=== PATIENT | male | born 1985 | race Caucasian/White ===

== ENCOUNTER 2024-02-15 22:36 | Emergency (ER) | payer OTHER, SELFPAY ==
--- NOTE | ~2024-02-15 | CT_ITS ---
CT ANGIOGRAM NECK AND HEAD History: Numbness. Technique: Axial noncontrast imaging of the brain was performed. Serial spiral axial images through t he head and neck were then obtained during arterial phase IV injection of 100 cc of Omnipaque 350. 3- D postprocessing and MIP images were then reconstructed on the remote workstation. Dose reduction pat hnique was used on this scan by utilizing automated exposure control and iterative reconstruction pat hnique. The dose-length product (DLP) was 1867.59 mGy-cm. CTA neck findings: Bilateral vertebral arteries are patent. Bilateral common carotid, internal carot id, and external carotid arteries are patent. No large vessel occlusion or stenosis. No aneurysm. The proximal right internal carotid artery demonstrates 0% stenosis relative to the normal distal artery lumen diameter. The proximal left internal carotid artery demonstrates 0% stenosis relative to the n ormal distal artery lumen diameter. CTA head findings: Distal vertebral arteries, basilar artery, and posterior cerebral arteries are pat ent. Distal internal carotid arteries, middle cerebral arteries, and anterior cerebral arteries are p atent. No large vessel occlusion or stenosis seen. No aneurysm. Axial noncontrast imaging of the brain is unremarkable. No acute infarct, intracranial hemorrhage, or mass lesion identified. Rowland-white differentiation intact. No mass effect or midline shift. Ventricl es and subarachnoid spaces are unremarkable. Paranasal sinuses and mastoid air cells are clear. Campbell rium intact. Impression: Unremarkable exam. Reviewed, dictated and finalized at [facility]. Impression: Unremarkable exam.
[2024-02-15 22:41] VITALS: BP 160/100; PULSE 86; PULSE 93; RESP 21; RESP 22; TEMP 36.8; O2SAT 98
[2024-02-15 23:08] LABS: Basophils Percent Auto 0.4 % (0.2-1.2); Eosinophils Absolute Auto 0.2 K/mm3 (0-0.3); Eosinophils Percent Auto 2.3 % (0-4.4); Hematocrit 47.5 % (42.0-52.0); Hemoglobin 16.8 g/dL (14.0-18.0); Immature Granulocyte Absolute 0.03 K/mm3 (0.00-0.031); Immature Granulocyte Percent A 0.3 % (0-0.5); Lymphocytes Absolute Auto 3.78 K/mm3 (0.9-3.2); Lymphocytes Percent Auto 37.1 % (18.3-44.2); Mean Corpuscular HGB Conc 35.4 g/dl (32-36); Mean Corpuscular Hemoglobin 29.5 pg (26-34); Mean Corpuscular Volume 83.5 fl (80-100); Mean Platelet Volume 9.4 fl (7.4-10.4); Monocytes Absolute Auto 0.8 K/mm3 (0.1-0.6); Monocytes Percent Auto 7.5 % (2.6-8.5); Neutrophils Absolute Auto 5.4 K/mm3 (1.3-6.7); Neutrophils Percent Auto 52.4 % (45.5-73.1); Platelet Count Result 210 k/mm3 (150-375); Red Blood Count 5.69 M/mm3 (4.6-6.20); Red Cell Distribution Width 13.6 % (11.5-14.5); White Blood Count 10.2 K/mm3 (4.5-10.0)
--- NOTE | 2024-02-15 23:10 | ED.GENADULT ---
HPI - General Adult General Chief complaint: Neuro Symptoms/Deficit Stated complaint: facial numbness, dizzy, headache Time Seen by Provider: 02/15/24 22:43 History of Present Illness HPI narrative: Patient is a 38-year-old male who presents emergency department this evening complaining of nonspecific symptoms including nose tingling and pain behind his left eye. Patient is unsure when the symptoms started he says approximately 3-4 hours ago. He denies any focal weakness, any numbness and tingling anywhere along his bilateral lower or upper extremities. Patient denies any recent trauma or falls. He states that [facility]. Patient states that this pain behind his eye he has had for a while. He denies any significant past medical history other than hypertension. Related Data Allergies Allergy/AdvReac Type Severity Reaction Status Date / Time No Known Allergies Allergy Mild Verified 01/03/11 18:05 Review of Systems Review of Systems: All systems are reviewed and are negative unless stated otherwise in the HPI. Exam Narrative: General: Alert, awake, afebrile, in no acute distress. HEENT: PERRL, no rhinorrhea, no post nasal drip, oropharynx clear. Cardiovascular: Regular rate and rhythm, no murmurs, rubs or gallops, no peripheral edema. Respiratory: Clear to auscultation bilaterally, no tachypnea, no wheezing, no rhonchi, no rubs, no respiratory distress. Abdomen: Soft, nontender, nondistended, no rebound, no guarding, no peritoneal signs. Musculoskeletal: No joint swelling or deformity, normal muscle tone. Skin: No rashes or petechia, no signs of infection. Psychiatric: Alert and oriented, normal behavior and judgment for situation. Neurological: Alert and oriented to person, place, and time. Follows all commands. No focal deficits, 5/5 motor strength in the bilateral upper and lower extremity, sensation intact bilateral upper and lower extremity, cranial nerves 2-12 grossly intact, speech is clear and fluent. Course Vital Signs Vital signs: Vital Signs Temperature 98.2 F 02/15/24 22:41 Pulse Rate 86 02/15/24 22:41 Respiratory Rate 21 H 02/15/24 22:41 Blood Pressure 160/100 H 02/15/24 22:41 Pulse Oximetry 98 02/15/24 22:41 Oxygen Delivery Room Air 02/15/24 22:41 Temperature 98.2 F 02/15/24 22:41 Pulse Rate 89 02/16/24 00:02 Respiratory Rate 16 02/16/24 00:02 Blood Pressure 141/93 H 02/16/24 00:02 Pulse Oximetry 98 02/16/24 00:02 Oxygen Delivery Room Air 02/15/24 22:41 Medical Decision Making MDM Narrative Medical decision making narrative: The patient was evaluated by myself in the emergency department. History is obtained from patient who is an independent historian and physical exam was performed. External medical records were reviewed at this time. IV was established and pertinent tests were ordered. Laboratory results obtained revealing no acute process. Imaging studies obtained included CT brain without IV contrast and CT angiogram of the head and neck which was independently interpreted by me revealing no acute process, which is pending final radiology interpretation. Differential diagnosis considerations include complex migraine, anxiety reaction, intracranial process Comorbidities impacting this visit include none. I have evaluated and discussed social determinants of health with the patient that could potentially impact subsequent diagnosis and treatment plans. On repeat assessment of the patient, reevaluation revealed that the patient is doing well and is in no acute distress. Patient symptoms have remained stable since he arrived to our emergency department. Repeat vital signs were all reviewed and noted to be stable. Differential diagnosis and treatment plan were discussed with the patient at bedside. Patient agrees with discussion and after shared medical decision ma
[2024-02-15 23:20] LABS: Alanine Aminotransferase 44 U/L (6-50); Albumin Level 4.6 g/dL (3.5-5.1); Alkaline Phosphatase 51 U/L (38-126); Anion Gap 8 mmol/L (4-12); Aspartate Amino Transferase 32 U/L (17-59); Bilirubin,Total 0.7 mg/dL (0.2-1.3); Blood Urea Nitrogen 24 mg/dL (9-20); Carbon Dioxide 28 mmol/L (22-30); Chloride 103 mmol/L (98-107); Estimated CRCL calculation 99 ml/min; Estimated Glomerular Filt Rate > 60; Glucose 91 mg/dL (65-110); Magnesium 1.9 mg/dL (1.6-2.3); Potassium 3.4 mmol/L (3.4-5.0); Sodium 139 mmol/L (137-145)
[2024-02-16 00:02] VITALS: BP 141/93; PULSE 89; RESP 16; O2SAT 98
[2024-02-16 00:58] VITALS: BP 133/79; PULSE 77; RESP 17; O2SAT 98
== END 2024-02-16 00:58 | disposition home or self-care (01) ==
PROVIDERS: Emergency Provider Emergency Medicine; PCP Family Medicine
DX: R20.2 Paresthesia of skin (principal)
CPT/HCPCS: 36415; 70496; 70498; 80053; 83735; 85025; 99284; Q9967

== ENCOUNTER 2024-03-22 11:22 | Emergency (ER) | payer OTHER, SELFPAY ==
--- NOTE | ~2024-03-22 | XR_ITS ---
EXAMINATION: XR chest 2V DATE: 03/22/2024 12:12 INDICATION: Chest pain. Shortness of breath. TECHNIQUE: Frontal and lateral views of the chest were obtained. COMPARISON: None. FINDINGS: There is no pneumonia, pleural effusion, or pneumothorax. The heart size is normal. IMPRESSION: 1. No acute cardiopulmonary disease. Reviewed, dictated and finalized at location [facility].
--- NOTE | 2024-03-22 11:39 | ECG_ITS ---
Test Date: 2024-03-22 11:48:50 Measurements Intervals [place] Rate: 98 P: 49 VT: 119 QRS: 24 QRSD: 106 T: 28 QT: 340 QTc: 435 Interpretive Statements SINUS RHYTHM WITH SHORT VT INTERVAL NONSPECIFIC T-WAVE ABNORMALITY No previous ECG available for comparison Electronically Signed On 03-22-2024 13:39:06 CDT by Krzysztof Pool M.D.
[2024-03-22 11:47] VITALS: BP 159/104; PULSE 101; RESP 20; TEMP 36.8; O2SAT 99
[2024-03-22 12:07] LABS: Basophils Percent Auto 0.4 % (0.2-1.2); Eosinophils Absolute Auto 0.1 K/mm3 (0-0.3); Eosinophils Percent Auto 1.8 % (0-4.4); Hematocrit 49.8 % (42.0-52.0); Hemoglobin 17.1 g/dL (14.0-18.0); Immature Granulocyte Absolute 0.03 K/mm3 (0.00-0.031); Immature Granulocyte Percent A 0.4 % (0-0.5); Lymphocytes Absolute Auto 1.99 K/mm3 (0.9-3.2); Mean Corpuscular HGB Conc 34.3 g/dl (32-36); Mean Corpuscular Hemoglobin 28.9 pg (26-34); Mean Corpuscular Volume 84.3 fl (80-100); Mean Platelet Volume 9.1 fl (7.4-10.4); Monocytes Absolute Auto 0.4 K/mm3 (0.1-0.6); Neutrophils Absolute Auto 4.7 K/mm3 (1.3-6.7); Neutrophils Percent Auto 64.4 % (45.5-73.1); Platelet Count Result 200 k/mm3 (150-375); Red Blood Count 5.91 M/mm3 (4.6-6.20); Red Cell Distribution Width 13.3 % (11.5-14.5); White Blood Count 7.4 K/mm3 (4.5-10.0)
[2024-03-22 12:16] LABS: Alanine Aminotransferase 58 U/L (6-50); Albumin Level 4.8 g/dL (3.5-5.1); Alkaline Phosphatase 60 U/L (38-126); Anion Gap 10 mmol/L (4-12); Aspartate Amino Transferase 38 U/L (17-59); Bilirubin,Total 0.6 mg/dL (0.2-1.3); Blood Urea Nitrogen 20 mg/dL (9-20); Calcium 9.6 mg/dL (8.4-10.2); Carbon Dioxide 23 mmol/L (22-30); Chloride 103 mmol/L (98-107); Estimated CRCL calculation 105 ml/min; Estimated Glomerular Filt Rate > 60; Glucose 141 mg/dL (65-110); Lipase 103 U/L (23-300); Sodium 136 mmol/L (137-145)
[2024-03-22 12:17] LABS: INR 0.9; Partial Thromboplastin Time 24.1 Seconds (22.3-36.8); Prothrombin Time 12.8 Seconds (11.1-14.7)
[2024-03-22 12:28] LABS: Troponin I < 0.012 ng/mL (0.000-0.034)
[2024-03-22 13:08] VITALS: PULSE 93
[2024-03-22 13:10] VITALS: BP 158/108; PULSE 93; RESP 18; O2SAT 99
[2024-03-22] MEDS: ASPIRIN 81 MG CHEWABLE TABLET 324 MG PO (13:15)
--- NOTE | 2024-03-22 13:55 | ED.ARRPALP ---
HPI - Arrhythmia/Palpitations General Chief Complaint: Chest Pain Stated Complaint: I think I have heat exhaustian Time Seen by Provider: 03/22/24 13:10 Source: patient Mode of arrival: ambulatory Limitations: no limitations History of Present Illness HPI narrative: This is a 38 year old male that presents to the ER for heart racing. Reports he has been out in the heat a lot the last week. Is wondering if he is suffering from heat exhaustion. Reports his heart was racing with rates into the 140s without exertion. Does also report history of anxiety and is unsure if this contributes. Reports he has suffered from chronic dizziness and sinus issues. He has history of a TBI. Is seen at the [place]. Reports he is feeling a little better after drinking some water. Denies current chest pain or shortness of breath. Related Data Allergies Allergy/AdvReac Type Severity Reaction Status Date / Time No Known Allergies Allergy Mild Verified 03/22/24 13:10 Review of Systems Review of Systems: CONSTITUTIONAL: Denies fever EYES: Denies visual changes CARDIOVASCULAR: Reports palpitations. Denies chest pain, or edema. RESPIRATORY: Denies dyspnea. GASTROINTESTINAL: Denies vomiting, or diarrhea. MUSCULOSKELETAL: Reports myalgia. PSYCHIATRIC: Reports anxiety All systems reviewed & are unremarkable except as noted in HPI and below Exam Narrative: GENERAL: Well-appearing, well-nourished, and in no acute distress. HEAD: Normocephalic, atraumatic. EYES: PERRLA and EOMI. ENT: Nares clear, no rhinorrhea or epistaxis. Mucous membranes moist. Oropharynx without tonsillar hypertrophy exudate or other lesions. Bilateral TMs pearly horne non-bulging NECK: Supple. No adenopathy or masses. CHEST: Clear to auscultation. No respiratory distress. No wheezes rales or rhonchi HEART: Regular rate and rhythm. No murmur heard. Normal peripheral pulses. EXTREMITIES: Normal range of motion. No edema. SKIN: Warm, dry, no rash. NEURO: No focal deficits. Alert and oriented x3. Cranial nerves 2-12 grossly intact PSYCH: Normal mood and affect Course Course Emergency Course: Patient updated on his workup and agrees with plan of care Vital Signs Vital signs: Vital Signs Temperature 98.2 F 03/22/24 11:47 Pulse Rate 101 H 03/22/24 11:47 Respiratory Rate 20 03/22/24 11:47 Blood Pressure 159/104 H 03/22/24 11:47 Pulse Oximetry 99 03/22/24 11:47 Oxygen Delivery Room Air 03/22/24 11:47 Temperature 98.2 F 03/22/24 11:47 Pulse Rate 75 03/22/24 16:16 Respiratory Rate 14 03/22/24 16:16 Blood Pressure 138/85 03/22/24 16:16 Pulse Oximetry 99 03/22/24 16:16 Oxygen Delivery Room Air 03/22/24 11:47 MDM - Arrhythmia/Palpitations MDM Narrative Medical decision making narrative: Patient presents to the emergency department for heart palpitations. Mildly tachycardic upon arrival, this normalized with IV fluids. Patient has remained in sinus rhythm. CBC metabolic panel without concerning findings. Patient voicing possible dehydration. His CK is normal. Urine without evidence of infection or dehydration. EKG without concerning changes in baseline and 3 hour troponin are negative. Chest x-ray without acute cardiopulmonary abnormality. Patient was updated on his workup and agrees with plan of care. He is to follow up with primary provider. He was given warnings to return to the ER Differential Diagnosis Differential diagnosis: Likely palpitations, anxiety, sinus tachycardia, artial fibrillation and ventricular premature beats Lab Data Attestation: I reviewed the patient's lab results. 03/22/24 12:00 03/22/24 12:00 Labs: Lab Results 03/22/24 03/22/24 03/22/24 Range/Units 12:00 14:03 15:00 WBC 7.4 (4.5-10.0) K/mm3 RBC 5.91 (4.6-6.20) M/mm3 Hgb 17.1 (14.0-18.0) g/dL Hct 49.8 (42.0-52.0) % MCV 84.3 (80-100) fl MCH 28.9 (26-34) pg MCHC 34.3 (32-36) g/dl RDW
[2024-03-22 13:58] VITALS: BP 133/64; PULSE 81; RESP 18; O2SAT 95
[2024-03-22 13:59] LABS: Creatine Kinase 152 U/L (55-170)
[2024-03-22] MEDS: SODIUM CHLORIDE 0.9% IV 1,000 ML 999 ML IV CONT (14:01)
[2024-03-22 14:13] LABS: Appearance Urine Clear (Clear); Bilirubin Urine Negative (Negative); Blood Urine Negative (Negative); Color Urine Yellow (Yellow); Glucose Urine UA Negative (Negative); Ketones Urine Negative (Negative); Leukocyte Esterase Ur Negative LEU/UL (Negative); Nitrate Urine Negative (Negative); Protein Urine Negative (Negative); Urobilinogen Urine 0.2 mg/dL (<2.0)
[2024-03-22 14:16] LABS: Add Urine Microscopic? NO; Specific Grav Ur 1.003 (1.001-1.035)
--- NOTE | 2024-03-22 14:55 | ECG_ITS ---
Test Date: 2024-03-22 15:05:42 Measurements Intervals [place] Rate: 69 P: 50 [place]: 139 QRS: 20 QRSD: 110 T: 7 QT: 382 QTc: 410 Interpretive Statements SINUS RHYTHM NORMAL ELECTROCARDIOGRAM Compared to ECG 03/22/2024 11:48:50 NO SIGNIFICANT CHANGE Electronically Signed On 03-23-2024 07:19:15 CDT by Omari Hdez M.D.
[2024-03-22 15:01] VITALS: BP 134/87; PULSE 72; RESP 17; O2SAT 97
[2024-03-22 15:27] LABS: Troponin I < 0.012 ng/mL (0.000-0.034)
[2024-03-22 16:16] VITALS: BP 138/85; PULSE 75; RESP 14; O2SAT 99
== END 2024-03-22 16:39 | disposition home or self-care (01) ==
PROVIDERS: Emergency Medicine; Emergency Provider Physician Assistant
DX: R00.2 Palpitations (principal); F41.9 Anxiety disorder, unspecified; Z87.820 Personal history of traumatic brain injury; R94.31 Abnormal electrocardiogram [ECG] [EKG]
CPT/HCPCS: 36415; 71046; 80053; 81003; 82550; 83690; 84484; 85025; 85610; 85730; 93005; 96360; 99284; A9270; J7030

== ENCOUNTER 2025-06-14 17:17 | Emergency (ER) | payer OTHER, SELFPAY ==
--- OUTSIDE RECORDS SUMMARY | 2025-06-12 11:15 | XMS_ITS | Continuity of Care Document ---
Author Organization [employer] [place] Address [address] [place] [address] [address] [place] [address] Phone Care Team Providers Care Card Writer Hand Name Role Phone Sofía PT, CMPT, Jamil [...] Diagnoses Date Provider Providers Copied on Encounter [facility], [id number], tel:[phone] Viraj [place] No Information Angel Negron. [address] [facility], [facility] [address], [place], [address], [place]. tel: [phone] Referring Provider: December [facility] 5th Floor, [place], [address]. tel:[phone] [facility] [address], [id number], tel:[phone] Viraj [place] No Information Angel Negron. [address] [facility], [address], [place], [facility], [place]. tel: [phone] Referring Provider: Michelle Waddell, Enma5 [facility] 5th Floor, [place], [address]. tel:[phone] [place] [address], [facility] [place] [address], [place], [id number], tel:[phone] Viraj [place] No Information Maribeln es Jamil. [address] [place] [address], [address], [place], [facility], [place]. tel: [phone] Referring Provider: Michelle Waddell, Enma5 [facility] 5th Floor, [place], [address]. tel:[phone] [place] [address], [facility] [place] [address], [place], [id number], tel:[phone] Viraj [place] No Information Maribeln es Jamil. [address] [place] [address], [address], [place], [place], [facility], [place]. tel: [phone] Referring Provider: Michelle Waddell, Enma5 [facility] 5th Floor, [place], [address]. tel:[phone] [place] [address], [facility] [place] [address], [place], [id number], [place] tel:[phone] Viraj [place] No Information Maribeln es Jamil. [address] [place] [address], [address], [place], [facility], [place]. tel: [phone] Referring Provider: Michelle Waddell, Enma5 [facility] 5th Floor, [place], [address]. tel:[phone] [place] [address], [facility] [address], [id number], [place] tel:[phone] Viraj [place] No Information BeasleyClyden es Jamil. [address] [place] [address], [address], [place], [place], [facility], [place]. tel: [phone] Referring Provider: December [facility] 5th Floor, [place], [address]. tel:[phone] [place] [address], [address], [place], [place], [id number], [place] tel:[phone] [place]aj [place] No Information Carter Rolf. . Referring Provider: Chato Diane, [place], [address]. tel:[phone] [place] [address], [address], [place], [id number], [place] tel:[phone] [place] No Information Carter Rolf. . Referring Provider: Chato Diane, [place], [address]. tel:[phone] [place] [address], [address], [place], [id number], [place] tel:[phone] [place]aj [place] No Information Carter Rolf. . Referring Provider: Chato Diane, [address] [place] [address], [address]. tel:[phone] [place] [address], [address], [place], [id number], [place] tel:[phone] [place] No Information Carter Rolf. . Referring Provider: Chato Diane, [address] [place] [address], [address]. tel:[phone] [place] [address], [address], [place], [id number], [place] tel:[phone] [place] No Information Carter Rolf. . Referring Provider: Chato Diane, [address] [place] [address], [address]. tel:[phone] [place] [address], [address], [place], [id number], [place] tel:[phone] [place] No Information Carter Rolf. . Referring Provider: Chato Diane, [address] [place], [address]. tel:[phone] [place] [address], [address] [facility], [place], [id number], [place] tel:[phone] [place]aj [place] No Information Carter Rolf. . Referring Provider: Chato Diane, [address] [facility], [place], [address]. tel:[phone] [place] [address], [address] [facility], [place], [place], [id number], [place] tel:[phone] [place] No Information Carter Rolf. . Referring Provider: Chato Diane, [address] [place], [address]. tel:[phone] [place] [address], [address] [facility], [place], [id number], [place] tel:[phone] [place] No Information Carter Rolf. . Referring Provider: Chato Diane, [address] [place], [address]. tel:[phone] [place] [address], [address] [facility], [place], [id number], [place] tel:[phone] [place] No Information Carter Rolf. . Referring Provider: Chato Diane, [address] [place], [address]. tel:[phone] [place] [address], [address] [facility], [place], [id number], [place] tel:[phone] [place] No Information Carter Rolf. . Referring Provider: Chato Diane, [address] [place], [address]. tel:[phone] [place] [address], [address] [facility] [address], [place], [id number], tel:[phone] [place]aj [place] No Information Carter Rolf. . Referring Provider: Chato Diane, [address] [place] [address], [address]. tel:[phone] [place] [address], [address] [address], [place], [id number], tel:[phone] [place] No Information Carter Rolf. . Referring Provider: Chato Diane, [address] [place], [address]. tel:[phone] [place] [address], [address] [address], [place], [id number], tel:[phone] Viraj [place] No Information Carter Rolf. . Referring Provider: Chato Diane, [address] [place], [address]. tel:[phone] [place] [address], [address] [place] [address], [place], [place], [id number], tel:[phone] [place]aj [place] No Information Carter Rolf. . Referring Provider: Chato Diane, [address] [place], [address]. tel:[phone] Family History Family Member Type Diagnosis Age At Onset No Information Payers Payer name Insurance type Covered alliance party ID Authorjesús herrera(s) [facility] [employer] [place] [id number] Social History Type Description Quantity Date [...]
--- OUTSIDE RECORDS SUMMARY | 2025-06-14 17:21 | XMS_ITS | Clinical Summary ---
Author Organization [facility] Address [address] [facility] [place] [address] Care Team Providers Care Planning Manager Name Role Phone Unlisted, Ordering Provider MD Primary Care Prov ider Unavailable Source Comments [facility],non-owned Affiliates and Associated Physician Practices is amultiple site organization consisting of ambulatory clinics and hospital sitesin [place], [place], [place] and [place]. This disclosure is being madepursuant to the Care Everywhere program and may not contain all information available regarding this patient. Last updated 18.[employer] [facility] Allergies No known active allergies Medications * Be aware that medications may not be up to date on this document. Alwaysverify current medications with the patient. amphetamine-dext roamphetamine XR 24hr (ADDERALL XR) 20 MG capsule Take 20 mg by mouth DAILY. 09/29/19 18 Active Syringe, Disposable, (2-3CC SYRINGE) 3 ML MISC Use 1 mL every 10 days 10 Each 11 01/31/20 18 Active Syringe, Disposable, 3 ML MISC 1 mL by Does not apply route Every 10 days. 22G needles 09/29/19 18 Active CEPACOL EXTRA STRENGTH 15-2.6 MG lozenge 02/03/20 18 Active REFRESH PLUS 0.5 % ophthalmic solution 02/03/20 18 Active FLUoxetine (PROZAC) 20 MG capsule 02/01/20 18 Active fluticasone propionate (FLONASE) 50 MCG/ACT nasal spray 02/03/20 18 Active loratadine (CLARITIN) 10 MG tablet 02/03/20 18 Active NASAL DECONGESTANT SPRAY 0.05 % nasal spray 02/03/20 18 Active pseudoephedrine (SUDAFED) 30 MG tablet 02/03/20 18 Active AYR SALINE NASAL RINSE 1.57 G 02/03/20 18 Active SAFETY-BERNADETTE 3CC SYR 22GX1.5 22G X 1-1/2 3 ML MISC 01/31/20 18 Active testosterone cypionate (DEPO-TESTOTERON E) 200 MG/ML injectionIndicat ions:Hypogonadot ropic Hypogonadism Inject 1.5 mL into muscle every 7 days Reasons: Hypogonadotropic Hypogonadism 10 mL 5 02/10/20 18 Active sildenafil (VIAGRA) 100 MG tablet Take 1 tablet by mouth once daily as needed (Erectile Dysfunction) 18 tablet 11 02/10/20 18 Active Active Problems Problem Noted Date Diagnosed Date Erectile dysfunction due to diseases classified elsewhere 09/29/2017 Testicular hypofunction 09/29/2017 Social History Tobacco Use Types Packs/Day Years Used Date Smoking Tobacco: Never Smokeless Tobacco: Never Alcohol Use Standard Drinks/Week Comments Yes 0 (1 standard drink = 0.6 oz pur e alcohol) Sex and Gender Information Value Date Recorded Sex Assigned at Not on file 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 Gender Identity Not on file Sexual Orientation Not on file Last Filed Vital Signs Vital Sign Reading Time Taken Comments Blood Pressure 140/86 02/09/2018 2:15 PM CDT Pulse 99 02/09/2018 2:15 PM CDT Temperature 36.5 C (97.7 F) 02/09/2018 2:15 PM CDT Respiratory Rate - - Oxygen Saturation 95% 02/09/2018 2:15 PM CDT Inhaled Oxygen Concentration - - Weight 113.7 kg (250 lb 9.6 oz) 02/09/2018 2:15 PM CDT Height 187 cm (6' 1.62) 02/09/2018 2: 15 PM CDT Body Mass Index 32.51 02/09/2018 2:15 PM CDT Plan of Treatment Health Maintenance Due Date Last Done Comments HIV SCREENING 2002 HEPATITIS C SCREENING 04/19/2005 DTAP/TDAP/TD VACCINES (1 - Tdap) 2006 HEPATITIS B VACCINE (1 of 3 - 19+ 3-dose series) 2006 HPV VACCINE (1 - 3-dose SCDM series) 2014 DEPRESSION SCREENING 09/26/2024 COVID-19 VACCINE ( season) 2025 INFLUENZA VACCINE (#1) 2025 6, 08/27/2014, 06/21/2013, Additional history exists ZOSTER VACCINE (1 of 2) 2037 HIB VACCINE Aged Out No longer eligi ble based on patient's age to complete this topic MENINGOCOCCAL (Group B) VACCINE SHARED DECISION-MAKING Aged Out No longer eligible based on patient's age to complete this topic MENINGOCOCCAL GROUPS A/C/Y/W VACCINE Aged Out No longer eligible based on patient's age to complete this topic PNEUMOCOCCAL VACCINE Aged Out No long er eligible based on patient's age to complete this topic Insurance [facility] Care Teams Planning Manager Relationship Specialty Start Date End Date Unlisted, Ordering Provider, PCP - General 05/23/18
[2025-06-14 17:23] VITALS: BP 162/83; PULSE 130; RESP 20; TEMP 36.3; O2SAT 100
--- NOTE | 2025-06-14 17:31 | ED_ITS ---
HPI - Arrhythmia/Palpitations General Chief Complaint: Chest Pain Stated Complaint: POSS HEARTATTACK Time Seen by Provider: 06/14/25 17:40 Source: patient, RN notes reviewed and old records reviewed Mode of arrival: ambulatory Limitations: no limitations History of Present Illness HPI narrative: 40 year old male [facility] stating he thinks he is having a 'heart attack. He reports he awoke from nap and had been wearing his oxygen during his nap. He states that he went down stairs and ate peanut butter and jelly and then started having very fast heart rate in the 160's and also reports that he has chest pressure to his left chest and to his shoulder and down his arm. Patient reports that he chewed up a Vistaril tab on the way to clinic that he takes for his panic attacks and anxiety. 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 [facility] Patient denies any nausea or any diaphoresis. Patient reports no cardiac history MD complaint: rapid heart beat and palpitations (chest pain) Onset (ago): minute(s) (within past 20 minutes prior to arrival) Arrhythmia history: other (has had previous palpitations) Treatments prior to arrival: other (chewed up a hydroxyzine) Related Data Home Medications ?Medication ?Instructions ?Recorded ?Confirmed ?Last Taken ?Type Unable to Obtain Home Medications 06/1406/14/25 Unknown History Allergies Allergy/AdvReac Type Severity Reaction Status Date / Time No Known Allergies Allergy Mild Verified 06/14/25 18:46 Review of Systems Review of Systems: CONSTITUTIONAL: Denies fever, chills, or sweats. EYES: Denies visual changes, redness, or discharge. ENT: Denies rhinorrhea, congestion, sore throat, or otalgia. CARDIOVASCULAR: reports left sided chest pain, palpitations, no edema. RESPIRATORY: Denies cough or dyspnea. GASTROINTESTINAL: Denies abdominal pain, nausea, vomiting, or diarrhea. GENITOURINARY: Denies dysuria or hematuria. SKIN: Denies rash or itching. MUSCULOSKELETAL: Denies back pain, joint pain, or myalgia. NEUROLOGIC: reports history of headache, no numbness, or weakness. PSYCHIATRIC: Reports history of anxiety or depression, panic attacks All systems reviewed & are unremarkable except as noted in HPI and below PMFSH Past Medical History Medical History History of sinus problem Fractured sternum Fracture, ribs Migraine Gynecomastia Anxiety and depression PTSD (post-traumatic stress disorder) Sleep apnea cant tolerate C-Pap wears oxygen at 2 liters Surgical History Surgical History History of tonsillectomy H/O eye surgery PRK for vision correction H/O: vasectomy Social History Social History Smoking status: Never smoker Substance use type: marijuana Comments At time of signature, agree with nursing past medical, surgical, social and family history. There is no relevant family history pertinent to the presenting complaint Exam Narrative: GENERAL: Well-appearing, well-nourished, and in no acute distress, anxious. HEAD: Normocephalic, atraumatic. EYES: PERRLA and EOMI. ENT: Nares clear, no rhinorrhea or epistaxis. Mucous membranes moist.TM's normal throat pink with no swelling tonsils absent NECK: Supple.no lymphadenopathy CHEST: Clear to auscultation. No respiratory distress. HEART: Regular rate and rhythm. No murmur heard. Normal peripheral pulses.reports episode of chest pain and elevated heart rate, no nausea or any dyspnea or any tachypnea noted no diaphoresis ABDOMEN: Soft, nontender, nondistended, normal active bowel sounds. EXTREMITIES: Normal range of motion. No edema. SKIN: Warm, dry, no rash. NEURO: No focal deficits. Alert and oriented x3.anxious Course Course Emergency Course: Patient is aware of diagnosis, understands and agrees to treatment plan.? Anticipatory guidance given.? Patient agrees to follow-up as directed and is aware of reasons to seek care at the emergency department. To ED for further evaluation of chest pain refuses ambulance transfer and signed AMA paper in regards to refusal of ambulance transfer. Portions of this record may have been created with voice recognition software Level of Care: Express Care Visit Vital Signs Vital signs: Vital Signs Temperature 36.3 C L 06/14/25 17:23 Pulse Rate 130 H 06/14/25 17:23 Respiratory Rate 20 06/14/25 17:23 Blood Pressure 162/83 H 06/14/25 17:23 Pulse Oximetry 100 06/14/25 17:23 Oxygen Delivery Room Air 06/14/25 17:23 Temperature 36.3 C L 06/14/25 17:23 Pulse Rate 104 H 06/14/25 18:00 Respiratory Rate 18 06/14/25 18:00 Blood Pressure 140/76 06/14/25 18:00 Pulse Oximetry 98 06/14/25 18:00 Oxygen Delivery Room Air 06/14/25 18:00 Reviewed Transfer Transfered to: [facility] Transportation: Other (private car refuses ambulance transfer) Transfer rationale: episode of chest pain with palpitations, elevated heart rate, needs further evaluation and labs Accepting physician: Benjamin TELETYPE ADJUSTER at [facility] ED with accepting ED physician, see transfer form Transfer comments: To [facility] ED for further evaluation per private car with friend MDM - Arrhythmia/Palpitations MDM Narrative Medical decision making narrative: Report called to Benjamin MADRIGAL at [facility] ED with VS, current condition reviewed, PMH with ED physician accepting transfer. Differential Diagnosis Differential diagnosis: Likely palpitations, anxiety, sinus tachycardia and other (atypical chest pain, chest pain) Medical Records Attestation: I reviewed the patient's medical records. ECG Data EKG #1: Attestation: I personally reviewed and interpreted this ECG as follows: ECG completion date: 06/14/25 ECG completion time: 17:40 Prior ECG tracings: available for review Ischemic changes: non-specific ST-T wave changes Interpretation: sinus tachycardia [id number], DC 120ms, QRS 106ms, QT 315 EKG Interpretation: tachycardia and non-specific ST changes Critical Care Time Critical Care Time Critical Care Time: No Discharge Plan Discharge Clinical Impression: Palpitations Chest pain Qualifiers: Chest pain type: unspecified Qualified Code(s): R07.9 - Chest pain, unspecified Patient Disposition: Acute Care Hospital Condition: Stable Patient Language: Sinhala Prescriptions: No Action Unable to Obtain Home Medications Follow-up/Referrals: UNKNOWN,DOCTOR [Primary Care Provider] Time of Disposition: 18:06 Quality [place] Coma Scale Eyes: Open Verbal: Oriented and Alert Motor: Follows Commands [place] Coma Total Score: 15
--- NOTE | 2025-06-14 17:40 | ECG_ITS ---
Test Date: 2025-06-14 18:46:41 Measurements Intervals [place] Rate: 117 P: 64 ME: 120 QRS: 35 QRSD: 106 T: 69 QT: 315 QTc: 441 Interpretive Statements SINUS TACHYCARDIA NONSPECIFIC ST & T-WAVE ABNORMALITY ABNORMAL RHYTHM ECG Compared to ECG 06/25/2024 14:19:22 INCREASED HEART RATE THIS TRACING IS LESS SUGGESTIVE OF LVH Electronically Signed On 06-15-2025 08:39:12 CDT by Omari Hdez M.D.
[2025-06-14 18:00] VITALS: BP 140/76; PULSE 104; RESP 18; O2SAT 98
== END 2025-06-14 18:06 | disposition short-term general hospital (02) ==
PROVIDERS: Emergency Provider Registered Nurse
DX: R00.2 Palpitations (principal); R07.9 Chest pain, unspecified; F12.90 Cannabis use, unspecified, uncomplicated
CPT/HCPCS: 93005; 99213; G0463

== ENCOUNTER 2025-06-14 18:34 | Emergency (ER) | payer OTHER, SELFPAY ==
--- OUTSIDE RECORDS SUMMARY | 2025-06-12 11:15 | XMS_ITS | Continuity of Care Document ---
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 Name Role Phone Sofía PT, CMPT, Jamil Unavailable Livier vailable Procedures Procedure Date Therapeutic Activities Neuromuscular Re-Ed Therapeutic Exercise Manual Therapy Hot or Cold Pack Dry Needling 1-2 muscles Therapeutic Activities Neuromuscular Re-Ed Therapeutic Exercise Manual Therapy Hot or Cold Pack Dry Needling 1-2 muscles Therapeutic Activities Neuromuscular Re-Ed Therapeutic Exercise Manual Therapy Hot or Cold Pack Dry Needling 1-2 muscles Therapeutic Activities Neuromuscular Re-Ed Therapeutic Exercise Manual Therapy Hot or Cold Pack Dry Needling 1-2 muscles PT Evaluation Moderate Complexity Therapeutic Activities Neuromuscular Re-Ed Manual Therapy Therapeutic Exercise Hot or Cold Pack Dry Needling 1-2 muscles Therapeutic Activities Neuromuscular Re-Ed Therapeutic Activities Neuromuscular Re-Ed Therapeutic Activities Neuromuscular Re-Ed Therapeutic Activities Neuromuscular Re-Ed Therapeutic Activities Neuromuscular Re-Ed Therapeutic Activities Neuromuscular Re-Ed Progress Note Therapeutic Activities Neuromuscular Re-Ed Therapeutic Activities Neuromuscular Re-Ed Therapeutic Activities Neuromuscular Re-Ed Therapeutic Activities Neuromuscular Re-Ed Therapeutic Activities Neuromuscular Re-Ed Therapeutic Activities Neuromuscular Re-Ed Therapeutic Activities Neuromuscular Re-Ed Therapeutic Activities Neuromuscular Re-Ed PT Evaluation Moderate Complexity Therapeutic Activities Neuromuscular Re-Ed Advance Directives Directive Yes / No Effective Date File Name No Information Encounters Encounter Description Practice Location Reason(s) For Visit Diagnoses Date Provider Providers Copied on Encounter [facility], [id number], tel:[phone] [place] No Information Angel Negron. [address] [facility] [address], [place], [address], [place]. tel: [phone] Referring Provider: December [facility] 5th Floor, [place], [address]. tel:[phone] [facility] [address], [id number], tel:[phone] [place] No Information Angel Negron. [address] [facility], [address], [place], [facility], [place]. tel: [phone] Referring Provider: Michelle Waddell, Enma5 [facility] 5th Floor, [place], [address]. tel:[phone] [place] [address], [facility] [place] [address], [place], [place], [id number], tel:[phone] [place] No Information Maribeln es Jamil. [address] [place] [address], [address], [place], [facility], [place]. tel: [phone] Referring Provider: Michelle Waddell, Enma5 [facility] 5th Floor, [place], [address]. tel:[phone] [place] [address], [facility] [place] [address], [place], [place], [id number], tel:[phone] [place] No Information Maribeln es Jamil. [address] [place] [address], [address], [place], [place], [facility], [place]. tel: [phone] Referring Provider: Michelle Waddell, Enma5 [facility] 5th Floor, [place], [address]. tel:[phone] [place] [address], [facility] [place] [address], [place], [place], [id number], [place] tel:[phone] [place] No Information Maribeln es Jamil. [address] [place] [address], [address], [place], [facility], [place]. tel: [phone] Referring Provider: Michelle Waddell, Enma5 [facility] 5th Floor, [place], [address]. tel:[phone] [place] [address], [facility] [address], [id number], [place] tel:[phone] [place] No Information BeasleyClyden es Jamil. [address] [place] [address], [address], [place], [place], [facility], [place]. tel: [phone] Referring Provider: December [facility] 5th Floor, [place], [address]. tel:[phone] [place] [address], [address], [place], [place], [id number], [place] tel:[phone] [place] No Information Carter Rolf. . Referring Provider: Chato Diane, [place], [address]. tel:[phone] [place] [address], [address], [place], [place], [id number], [place] tel:[phone] [place] No Information Carter Rolf. . Referring Provider: Chato Diane, [place], [address]. tel:[phone] [place] [address], [address], [place], [place], [id number], [place] tel:[phone] [place] No Information Carter Rolf. . Referring Provider: Chato Diane, [address] [place] [address], [address]. tel:[phone] [place] [address], [address], [place], [id number], [place] tel:[phone] [place] No Information Carter Rolf. . Referring Provider: Chato Diane, [address] [place] [address], [address]. tel:[phone] [place] [address], [address], [place], [id number], [place] tel:[phone] [place] No Information Carter Rolf. . Referring Provider: Chato Diane, [address] [place] [address], [address]. tel:[phone] [place] [address], [address], [place], [place], [id number], [place] tel:[phone] [place] No Information Carter Rolf. . Referring Provider: Chato Diane, [address] [place], [address]. tel:[phone] [place] [address], [address] [facility], [place], [place], [id number], [place] tel:[phone] [place] No Information Carter Rolf. . Referring Provider: Chato Diane, [address] [facility], [place], [address]. tel:[phone] [place] [address], [address] [facility], [place], [id number], [place] tel:[phone] [place] No Information Carter Rolf. . Referring Provider: Chato Diane, [address] [place], [address]. tel:[phone] [place] [address], [address] [facility], [place], [place], [id number], [place] tel:[phone] [place] No Information Carter Rolf. . Referring Provider: Chato Diane, [address] [place], [address]. tel:[phone] [place] [address], [address] [facility], [place], [id number], [place] tel:[phone] [place] No Information Carter Rolf. . Referring Provider: Chato Diane, [address] [place], [address]. tel:[phone] [place] [address], [address] [facility], [place], [id number], [place] tel:[phone] [place] No Information Carter Rolf. . Referring Provider: Chato Diane, [address] [place], [address]. tel:[phone] [place] [address], [address] [facility] [address], [place], [id number], tel:[phone] [place] No Information Carter Rolf. . Referring Provider: Chato Diane, [address] [place] [address], [address]. tel:[phone] [place] [address], [address] [address], [place], [place], [id number], tel:[phone] [place] No Information Carter Rolf. . Referring Provider: Chato Diane, [address] [place], [address]. tel:[phone] [place] [address], [address] [address], [place], [place], [id number], tel:[phone] [place] No Information Carter Rolf. . Referring Provider: Chato Diane, [address] [place], [address]. tel:[phone] [place] [address], [address] [place] [address], [place], [id number], tel:[phone] [place] No Information Carter Rolf. . Referring Provider: Chato Diane, [address] [place], [address]. tel:[phone] Family History Family Member Type Diagnosis Age At Onset No Information Payers Payer name Insurance type Covered libertarian ID Authorjesús herrera(s) [facility] [employer] [place] [id number] Social History Type Description Quantity Date Captured Comments Sex Male Smoking Status No Information Chief Complaint And Reason For Visit No Information Reason For Referral Reason For Referral No Information Plan Of Treatment Date Type Action Status Referral Ordered: Referrals: Specialist. Evaluate and Treat (related to Adjustment disorder with depressed mood) ordered Referral Ordered: Depression: Depression management program timeframe: 1 Day. (related to Depression) ordered Referral Ordered: Clinical Psychology (related to Depression) ordered History Of Present Illness Encounter Date Complaint History Of Prese nt Illness No Information Functional Status Date Functional Assessmen t No Information Instructions Date Instruction Additional Infor mation No Information Assessments Type Assessment Date No Information Patient Care Teams Name Effective Dates (start - stop) Status Members No Information
[2025-06-14] VITALS (9 sets, daily range): BP systolic 128–149; BP diastolic 67–107; PULSE 72–117; RESP 16–22; TEMP 36.9; O2SAT 95–100
--- NOTE | ~2025-06-14 | XR_ITS ---
Examination: XR chest 2V Clinical History: chest pain Comparison: 03/22/2024 Technique: PA and Lateral Findings: Cardiomediastinal silhouette normal size and configuration. Lungs clear. No acute bony abnormality. IMPRESSION: 1. No acute cardiopulmonary findings. Reviewed, dictated and finalized at location R.
--- NOTE | 2025-06-14 18:35 | ECG_ITS ---
Test Date: 2025-06-14 22:01:32 Measurements Intervals [place] Rate: 75 P: 0 AL: 0 QRS: 10 QRSD: 102 T: -87 QT: 349 QTc: 392 Interpretive Statements POOR QUALITY ECG BECAUSE OF BASELINE MOTION ARTIFACT SINUS RHYTHM NONSPECIFIC ST AND T-WAVE ABNORMALITY ABNORMAL ECG Compared to ECG 06/14/2025 18:46:41 NO OBVIOUS CHANGE ALTHOUGH COMPARISON IS CHALLENGING BECAUSE OF POOR QUALITY ECG Electronically Signed On 06-15-2025 08:44:06 CDT by Omari Hdez M.D.
[2025-06-14 19:07] LABS: Hematocrit 48.8 % (42.0-52.0); Hemoglobin 17.2 g/dL (14.0-18.0); Immature Granulocyte Percent A 0.4 % (0-0.5); Lymphocytes Absolute Auto 2.08 K/mm3 (0.9-3.2); Mean Corpuscular HGB Conc 35.2 g/dl (32-36); Mean Corpuscular Hemoglobin 28.6 pg (26-34); Mean Corpuscular Volume 81.1 fl (80-100); Nucleated Red Blood Cells Absolute Auto 0.000 K/mm3 (0.0-0.012); Nucleated Red Blood Cells Perc 0.0 % (0.0-0.2); Platelet Count Result 235 k/mm3 (150-375); Red Blood Count 6.02 M/mm3 (4.6-6.20); White Blood Count 10.0 K/mm3 (4.5-10.0)
[2025-06-14 19:20] LABS: Alanine Aminotransferase 60 U/L (6-50); Albumin Level 4.7 g/dL (3.5-5.1); Alkaline Phosphatase 52 U/L (38-126); Anion Gap 10 mmol/L (4-12); Aspartate Amino Transferase 39 U/L (17-59); Bilirubin,Total 0.4 mg/dL (0.2-1.3); Blood Urea Nitrogen 19 mg/dL (9-20); Calcium 9.0 mg/dL (8.4-10.2); Carbon Dioxide 24 mmol/L (22-30); Chloride 105 mmol/L (98-107); Estimated CRCL calculation 107 ml/min; Estimated Glomerular Filt Rate > 60; Glucose 140 mg/dL (65-110); Lipase 104 U/L (23-300); Potassium 3.7 mmol/L (3.4-5.0); Sodium 139 mmol/L (137-145); Total Protein 8.1 g/dL (6.3-8.2)
[2025-06-14 19:21] LABS: INR 1.0; Partial Thromboplastin Time 24.5 Seconds (22.3-36.8); Prothrombin Time 13.5 Seconds (11.1-14.7)
[2025-06-14 19:31] LABS: Troponin I < 0.012 ng/mL (0.000-0.034)
--- OUTSIDE RECORDS SUMMARY | 2025-06-14 20:38 | XMS_ITS | Clinical Summary ---
Author Organization [facility] [employer] Address [address] [facility] [place] [address] Care Team Providers Care Fork Truck Operator Name Role Phone Unlisted, Ordering Provider MD Primary Care Prov ider Unavailable Source Comments [facility] [employer],non-owned Affiliates and Associated Physician Practices is amultiple site organization consisting of ambulatory clinics and hospital sitesin [place], [place], [place] and [place]. This disclosure is being madepursuant to the Care Everywhere program and may not contain all information available regarding this patient. 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 CLAIMS [address] [place] [phone] [facility] Care Teams Fork Truck Operator Relationship Specialty Start Date End Date Unlisted, Ordering Provider, PCP - General 05/23/18
[2025-06-14 20:56] LABS: Magnesium 2.0 mg/dL (1.6-2.3)
--- NOTE | 2025-06-14 21:06 | ED.CHESTPAIN ---
HPI - Chest Pain General Chief Complaint: Chest Pain Stated Complaint: chest pain and palpitations Time Seen by Provider: 06/14/25 20:16 Source: patient Mode of arrival: ambulatory Limitations: no limitations History of Present Illness HPI narrative: Patient is a 40-year-old male who presents the ED with report of palpitations and chest pain. Patient reports around 5:00 p.m. after waking up from a nap in the eating, he began feeling anxious, she began feeling his heart race and developed shortness breath and pain throughout his left-sided chest. Reports his heart rate was in the 160s at that time. States this lasted for a couple hours. He went to an urgent care and was referred to the ED for further evaluation. Patient reports he did have a cardiac evaluation last year which was normal. He admits to history of anxiety and panic attacks, but states it is never lasted this long. Does admit to being under increased stress currently. He is feeling improved currently. Denies recent pain or swelling in legs, cough or cold symptoms, fevers. Related Data Home Medications ?Medication ?Instructions ?Recorded ?Confirmed ?Last Taken ?Type Unable to Obtain Home Medications 06/14/25 06/14/25 Unknown History Allergies Allergy/AdvReac Type Severity Reaction Status Date / Time No Known Allergies Allergy Mild Verified 06/14/25 18:46 Review of Systems Review of Systems: All systems reviewed & are unremarkable except as noted in HPI. All systems reviewed & are unremarkable except as noted in HPI and below PMFSH Past Medical History Medical History History of sinus problem Fractured sternum Fracture, ribs Migraine Gynecomastia Anxiety and depression PTSD (post-traumatic stress disorder) Sleep apnea cant tolerate C-Pap wears oxygen at 2 liters Surgical History Surgical History History of tonsillectomy H/O eye surgery PRK for vision correction H/O: vasectomy Social History Social History Smoking status: Never smoker Substance use type: marijuana Exam Narrative: GENERAL: Well appearing, well-nourished, non-toxic, in no acute distress. HEAD: Normocephalic, atraumatic. RESPIRATORY: Airway patent, respirations nonlabored. Clear to auscultation bilaterally, no rales, rhonchi, wheezing. No focal lung sounds. CARDIOVASCULAR: Regular rate and rhythm without murmurs, rubs, or gallops. Peripheral pulses intact. MUSCULOSKELETAL: Moves all extremities. No gross deformities. No peripheral edema. No calf tenderness. Mild tenderness to palpation over left and midsternal anterior chest wall. SKIN: Warm, dry, normal color. NEURO: A&O X3. Speech clear. Cranial nerves II-XII grossly intact. Steady gait. No ataxic movements. PSYCHIATRIC: Mildly anxious appearing. Normal interaction. Course Vital Signs Vital signs: Vital Signs Temperature 98.4 F 06/14/25 18:42 Pulse Rate 117 H 06/14/25 18:42 Respiratory Rate 18 06/14/25 18:42 Blood Pressure 149/107 H 06/14/25 18:42 Pulse Oximetry 100 06/14/25 18:42 Oxygen Delivery Room Air 06/14/25 18:42 Temperature 98.4 F 06/14/25 18:42 Pulse Rate 75 06/14/25 22:27 Respiratory Rate 16 06/14/25 22:27 Blood Pressure 128/67 06/14/25 22:36 Pulse Oximetry 95 06/14/25 22:27 Oxygen Delivery Room Air 06/14/25 20:16 MDM - Chest Pain MDM Narrative Medical decision making narrative: Patient presented to ED with palpitations, left-sided chest pain. Initial vital signs, patient was tachycardic into the 110s and blood pressure was slightly elevated. At the time of my evaluation, heart rate had normalized down into the 90s without intervention. Patient reports symptoms are improved currently. EKG with lots of artifact, but no significant concerning ST changes. Troponin undetectable x2 Stable basic laboratory studies. Stable electrolytes. Mag within normal range. TSH within normal range. D-dimer within normal range Chest x-ray is clear. Heart score equals 1 Discussed overall reassuring workup, low suspicion for ACS at this time. Vital signs have completely normalized without intervention. Feel patient is safe for discharge home at this time, recommended close follow-up with PCP for further evaluation. Discussed possibility of Holter monitor in the future if palpitations persist. Patient given strict return precautions. He agrees with plan. Feels comfortable going home. Discharged in stable condition. Medical Records Data Attestation: I reviewed the patient's medical records. Lab Data Attestation: I reviewed the patient's lab results. 06/14/25 19:00 06/14/25 19:00 Labs: Lab Results 06/14/25 06/14/25 06/14/25 Range/Units 19:00 20:17 21:45 WBC 10.0 (4.5-10.0) K/mm3 RBC 6.02 (4.6-6.20) M/mm3 Hgb 17.2 (14.0-18.0) g/dL Hct 48.8 (42.0-52.0) % MCV 81.1 (80-100) fl MCH 28.6 (26-34) pg MCHC 35.2 (32-36) g/dl RDW 14.9 H (11.5-14.5) % Plt Count 235 (150-375) k/mm3 MPV 8.9 (7.4-10.4) fl Immature Gran % (Auto) 0.4 (0-0.5) % Neut % (Auto) 71.6 (45.5-73.1) % Lymph % (Auto) 20.8 (18.3-44.2) % [place] % (Auto) 5.7 (2.6-8.5) % Eos % (Auto) 1.2 (0-4.4) % Baso % (Auto) 0.3 (0.2-1.2) % Lymph # (Auto) 2.08 (0.9-3.2) K/mm3 [place] # (Auto) 0.6 (0.1-0.6) K/mm3 Eos # (Auto) 0.1 (0-0.3) K/mm3 Baso # (Auto) 0.0 (0.0-0.1) K/mm3 Abs Immat Gran (auto) 0.04 H (0.00-0.031) K/mm3 Absolute Neuts (auto) 7.2 H (1.3-6.7) K/mm3 Absolute Nucleated RBC 0.000 (0.0-0.012) K/mm3 Nucleated RBC % 0.0 (0.0-0.2) % PT 13.5 (11.1-14.7) Seconds INR 1.0 APTT 24.5 (22.3-36.8) Seconds D-Dimer 0.30 (<0.48) ug/mL Sodium 139 (137-145) mmol/L Potassium 3.7 (3.4-5.0) mmol/L Chloride 105 (98-107) mmol/L Carbon Dioxide 24 (22-30) mmol/L Anion Gap 10 (4-12) mmol/L BUN 19 (9-20) mg/dL Creatinine 1.11 (0.7-1.3) mg/dL Estim Creat Clear Calc 107 ml/min Estimated GFR > 60 (59 - ) Glucose 140 H (65-110) mg/dL Calcium 9.0 (8.4-10.2) mg/dL Magnesium 2.0 (1.6-2.3) mg/dL Total Bilirubin 0.4 (0.2-1.3) mg/dL AST 39 (17-59) U/L ALT 60 H (6-50) U/L Alkaline Phosphatase 52 (38-126) U/L Troponin I < 0.012 < 0.012 (0.000-0.034) ng/mL Total Protein 8.1 (6.3-8.2) g/dL Albumin 4.7 (3.5-5.1) g/dL Lipase 104 (23-300) U/L TSH (Reflex) 1.530 (0.465-4.68) uIU/mL Imaging Data Attestation: I personally reviewed and interpreted this imaging study as follows: Radiologist's impression: ITS Impressions Chest X-Ray 06/14/25 19:16 IMPRESSION: 1. No acute cardiopulmonary findings. Discharge Plan Discharge Clinical Impression: Atypical chest pain, Tachycardia Patient Disposition: Home Condition: Stable Instructions: Antibiotic Form, Chest Pain (ED), Heart Palpitations (ED), Tachycardia (ED) Additional Instructions: Your workup here was reassuring against a cardiac cause of your chest pain. Continue to monitor symptoms very closely. Recommend close follow-up with primary care doctor for further evaluation and potential Holter monitor. Return to the ED if you experience worsening or severe symptoms, recurrent chest pain, recurrent palpitations, shortness of breath, unable to keep down food or drink, fevers, pain or swelling in your legs, or any other symptoms of concern. Patient Language: Sammarinese Prescriptions: No Action Unable to Obtain Home Medications Follow-up/Referrals: UNKNOWN,DOCTOR [Primary Care Provider] Time of Disposition: 22:22 Quality HEART score for chest pain patients History: slightly suspicious ECG: normal Age: < or = to 45 years Risk factors: 1 or 2 risk factors Troponin: < or = to 1x normal limit Heart score: 1
[2025-06-14 21:28] LABS: Thyroid Stimulating Hormone Reflex 1.530 uIU/mL (0.465-4.68)
--- NOTE | 2025-06-14 21:38 | ECG_ITS ---
Test Date: 2024-06-25 14:19:22 Measurements Intervals [place] Rate: 79 P: 4 UT: 135 QRS: 11 QRSD: 86 T: -6 QT: 361 QTc: 416 Interpretive Statements SINUS RHYTHM MINIMAL VOLTAGE CRITERIA FOR LVH, CONSIDER NORMAL VARIANT [MEETS CRITERIA IN ONE OF: R(aVL), S(V1), R(V5), R(V5/V6)+S(V1)] NONDIAGNOSTIC INFERIOR Q-WAVES BORDERLINE ECG Compared to ECG 03/22/2024 15:05:42 CURRENT TRACING HAS MORE BASELINE ARTIFACT, NO SIGNIFICANT CHANGE Electronically Signed On 06-15-2025 08:25:55 CDT by Omari Hdez M.D.
[2025-06-14 22:13] LABS: Troponin I < 0.012 ng/mL (0.000-0.034)
== END 2025-06-14 22:38 | disposition home or self-care (01) ==
PROVIDERS: Emergency Medicine; Emergency Provider Physician Assistant
DX: R07.89 Other chest pain (principal); R00.0 Tachycardia, unspecified; E78.00 Pure hypercholesterolemia, unspecified; F43.10 Post-traumatic stress disorder, unspecified; F41.8 Other specified anxiety disorders; G47.30 Sleep apnea, unspecified; Z99.81 Dependence on supplemental oxygen
CPT/HCPCS: 36415; 71046; 80053; 83690; 83735; 84443; 84484; 85025; 85380; 85610; 85730; 93005; 99284